=== PATIENT | male | born 1970 | race Caucasian/White ===

== ENCOUNTER 2017-02-22 12:15 | Inpatient (IN) | payer OTHER ==
[2017-02-22] MEDS ORDERED: NON-FORMULARY NEW DRUG (Zolpidem Tartrate [Ambien 10 Mg] 0 MG) PO PRN (16:14)
[2017-02-22] MEDS ORDERED: ACETAMINOPHEN 325 MG TAB PO PRN (16:14)
[2017-02-22] MEDS ORDERED: POLYETHYLENE GLYCOL 3350 17 GM PKT PO PRN (16:15)
[2017-02-22] MEDS ORDERED: BISACODYL 10 MG SUPP PR PRN (16:15)
--- NOTE | 2017-02-22 16:17 | PDOREHIP ---
Admission [facility] - Admission - 3 Day Assessment Period Admission Date/Day 1: 02/22/17 Day 2: 02/23/17 Day 3: 02/24/17 - Active Diagnoses Comorbidities and Co-existing Conditions at Admission: 77950. None of the Above - Skin Conditions Unhealed Pressure Ulcer (1 or more/Stage 1 or >)-Admission: 0. No
[2017-02-22] MEDS ORDERED: ZOLPIDEM TARTRATE 5 MG TAB PO PRN (16:19)
--- NOTE | 2017-02-22 16:54 | GHP ---
[f rep st] HISTORY AND PHYSICAL POST ADMISSION PHYSICIAN EVALUATION AND REHABILITATION TREATMENT PLAN DATE OF ADMISSION: 02/22/2017 DATE OF EVALUATION: February 22, 2017. TIME OF EVALUATION: 1540. REFERRING FACILITY: [facility]. IMPAIRMENT GROUP: 1.2. DATE OF ONSET: 02/18/2017. REFERRING PHYSICIAN: Dr. Almaraz. CONSULTING PHYSICIANS: He was seen in consultation by Neurology, Dr. Cali, and there was a Cardiology consultation with Dr. Joy. REHABILITATION DIAGNOSIS: Cerebrovascular accident involving the right posterior artery with infarction in the right occipital and temporal lobes, and the right thalamus. ETIOLOGIC DIAGNOSIS: Right body involvement (left brain). HISTORY OF PRESENT ILLNESS: The patient presented to the emergency department at [facility] with a headache, vision changes, and left- sided tingling and weakness, this had been going on longer than the window for thrombolysis. A head CT showed ischemic infarct in the right posterior cerebral artery vascular distribution, involving the right occipital lobe, the right medial temporal lobe and the right thalamus. He was seen by Neurology, an MRI of the brain showed the same findings as a head CT. An echocardiogram showed an atrial septal defect on bubble study. Angiography of the brain did not show any source of clot with a carotid ultrasound, and no DVT was found on lower extremity venous Doppler study. EKG showed right heart strain but normal sinus rhythm, a hypercoagulable state. Laboratory workup was obtained, but results are not yet available. He was started on aspirin, clopidogrel, and atorvastatin. His condition was considered stable for transfer to rehabilitation. LABORATORY DATA: Other studies and labs in the hospital, a CBC and a BMP were entirely within normal limits. Lipid profile showed a cholesterol of 180, an HDL of 40, an LDL of 130, and triglycerides of 48. Hemoglobin A1c was normal at 5, magnesium and phosphorus were normal. PRECAUTIONS: He is a fall risk. ACTIVE COMORBIDITIES: He has no active tier 1, tier 2, or tier 3 comorbidities. PAST MEDICAL HISTORY: 1. Hypertension. 2. Hypokalemia due to diuretic. 3. Rotator cuff tear on the left. 4. Depression. PAST SURGICAL HISTORY: He has had repair of the rotator cuff tear approximately 10 years ago. PRE-HOSPITAL MEDICATIONS: 1. Amlodipine 10 mg p.o. daily. 2. Escitalopram 10 mg p.o. daily. 3. Hydrocodone/acetaminophen 5/325 p.r.n. 4. Losartan 100 mg p.o. daily. 5. Hydrochlorothiazide 25 mg p.o. daily. 6. Metoprolol 50 mg extended release daily. 7. Potassium chloride 20 mEq daily. 8. Zolpidem 10 mg tablet, 5 to 10 mg p.o. at bedtime p.r.n. ADMISSION MEDICATIONS: 1. Escitalopram 5 mg p.o. daily. 2. Zolpidem 5 to 10 mg p.o. at bedtime p.r.n. 3. Acetaminophen 650 mg p.o. q.6 hours p.r.n. 4. Aspirin 325 mg p.o. daily. 5. Atorvastatin 40 mg p.o. at bedtime. 6. Clopidogrel 75 mg p.o. at bedtime. ALLERGIES: There are no known drug allergies. FAMILY HISTORY: Prostate cancer in his father, breast cancer in his mother. Stroke in his father at the age of 62. He is not aware of any history of abnormal blood clotting. PSYCHOSOCIAL HISTORY: He is , he lives with his and 3 teenage daughters. 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 There are steps to enter the house and steps within the house that he will need to negotiate. REVIEW OF SYSTEMS: He reports feeling disoriented on the drive from [facility] to [place], even though he is very familiar with the route and has driven it many times. He reports that he needs to concentrate and focus carefully to identify common objects. He feels he has tunnel vision. He has a mild headache. He denies weakness. He has tingling in the left arm and left leg. He denies cough, dyspnea, fevers, chills, weight gain or weight loss, chest pain, palpitations, nausea, vomiting, constipation, diarrhea, dysuria, urinary frequency, joint pain, joint swelling, skin rash, or skin breakdown, and otherwise a 10-point review of systems is negative. PHYSICAL EXAMINATION: VITAL SIGNS: Vitals are not yet available in the chart. GENERAL: This is a well-nourished, well-developed man dressed in street clothes, lying in bed, and then sits up, cooperative and in no acute distress. HEENT: Extraocular movements are intact. Pupils are equal, round, and reactive to light and accommodation. Mucous membranes are moist. Dentition is in good condition. He has an uncrowded airway, Mallampati class 1. NECK: Supple. HEART: Regular rate and rhythm, with no murmurs, rubs, or gallops. He is bradycardic. LUNGS: Clear to auscultation bilaterally. ABDOMEN: Soft, nontender, nondistended with normoactive bowel sounds, and no hepatosplenomegaly. EXTREMITIES: There is no cyanosis, clubbing, or edema. NEUROLOGIC: He is alert and oriented x3. Cranial nerves 2-12 are grossly intact. Left pupil is mildly larger than right pupil. They are approximately 3 mm and 2 mm, but they are normally reactive and otherwise cranial nerves 2-12 are grossly intact. There is 4+/5 weakness to the left hip flexor, otherwise there is no weakness. Sensation is intact to light touch. There is no loss of sensation to double simultaneous stimulation. Deep tendon reflexes are 2+ bilaterally at the biceps, patellar, and Achilles tendons. Finger to nose reveals normal cerebellar function, smooth and no past pointing. There is a left visual field cut on direct confrontation. SKIN: Warm and dry, with no rashes or skin breakdown noted. Current level of function per the pre-admission screen: Regarding diet, feeding , and swallowing, he is on a regular textured cardiac diet with thin liquids. Regarding grooming, he required setup and assistance. For bathing he required assistance, for dressing he required assistance. Bed mobility was achieved with contact guard assist and supervision. Transfers were done with contact guard to standby assist. Balance was noted to be poor. He needed close to standby assist and verbal cues. Endurance was poor. He was able to ambulate 10 feet with minimal to contact guard assist. Regarding cognition, he was noted to have mild cognitive deficits, and that he would need a higher level of cognitive therapy. He needed some cuing, he had decreased safety awareness. He was noted to have left visual problems. IMPRESSION: The patient is a 46-year-old man who suffered a posterior circulation stroke on 02/18/2017, beginning over the day or two prior to the presentation to the hospital. Head CT and MRI showed stroke in the right occipital lobe, right medial temporal lobe, and right thalamus. Investigations as to the etiology of the stroke showed an atrial septal defect on echocardiogram, but no other source of an embolus was noted, including on ultrasound of the carotid arteries and Doppler ultrasound bilaterally of the lower extremities. He was begun on aspirin, clopidogrel, and atorvastatin. His antihypertensives were held to allow permissive hypertension, and they can be restarted on Monday, February 27, 2017. He has functional deficits, partly stemming from his left visual field cut. He has some mild left-sided weakness and he has decreased balance, decreased endurance, and possibly cognitive effects from the stroke. He is appropriate for inpatient rehabilitation, where he will benefit from physical and occupational therapies, regarding activities of daily living, mobility and speech and language pathology regarding higher level cognitive function. Hypercoagulable laboratory workup was done at [facility] and we will watch for the results of these tests , and treat him appropriately with anticoagulant should they be positive. His goal is to return home with his family. For a safe discharge it is expected that he will achieve modified independence with mobility, self-care, activities of daily living and cognition, that he will have improvement in his vision, that he and his family will be educated on medication management. His blood pressure will need to be controlled. There will need to be family training and neurologic education. He will receive therapy with physical therapy, occupational therapy, and speech and language pathology for 60 minutes each day for each discipline on 5 to 7 days of the week. His expected duration of stay is 10-12 days. It is anticipated that upon discharge he will continue to benefit from home health services, including speech and language pathology, occupational therapy, physical therapy, and a stroke support group. ASSESSMENT AND PLAN: 1. 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 Physical and occupational therapy to optimize mobility and activities of daily living. 2. Cognitive effects of the stroke to be assessed and treated by Speech and Language Pathology. 3. Atrial septal defect and unknown embolic source. He was treated with aspirin and clopidogrel, and hypercoagulable labs are in process. Atorvastatin has been added for secondary stroke prevention. 4. Hypertension. His antihypertensives have been held to allow permissive hypertension, and can be restarted starting 02/27/2017. 5. Depression, is being treated with escitalopram. He will be observed for adequacy of treatment. There is no dima hemiplegia, so there is no reason to change to fluoxetine based on data for neuro recovery and hemiplegic stroke. 6. Abnormal EKG in hospital with evidence of right ventricular strain, in the absence of any other symptoms consistent with pulmonary embolus. Cardiology advised that there was no indication for a chest CT, so it was not done. He will be observed for any signs or symptoms of cardiopulmonary compromise. FOLLOWUP: He is to follow up with his primary care provider, Dr. Yung Tavares within the week following his discharge from inpatient rehabilitation. He is to follow up with neurologist, Dr. Bulmaro Cali, in approximately 6 weeks, and with head animal keeper, Dr. Selwyn Shore, in approximately 1 month. /[id number]/MODL MTDD
[2017-02-22] MEDS ORDERED: [UNRECOGNIZED DRUG - OTHER] PO ONE (17:24)
[2017-02-22] MEDS ORDERED: PETROLAT,WHT/MIN OIL/SOD CHL 3.5 GM OPHT.OINT EACHEYE PRN (19:42)
[2017-02-22] MEDS: TEARS/DEXTRAN 70/HYPROMELLOSE 15 ML OPHT.BTL EACHEYE PRN (20:20)
[2017-02-22] MEDS: CLOPIDOGREL BISULFATE 75 MG TAB PO SCH (20:21)
[2017-02-22] MEDS: ATORVASTATIN CALCIUM 40 MG TAB PO SCH (20:21)
[2017-02-23] MEDS: TEARS/DEXTRAN 70/HYPROMELLOSE 15 ML OPHT.BTL EACHEYE PRN ×3 (08:45→16:58)
[2017-02-23] MEDS: ESCITALOPRAM OXALATE 10 MG TAB PO SCH (08:46)
[2017-02-23] MEDS: ASPIRIN EC 325 MG TAB PO SCH (08:46)
[2017-02-23] MEDS ORDERED: NON-FORMULARY NEW DRUG (Escitalopram Oxalate [Lexapro] 5 MG) PO SCH (09:00)
[2017-02-23] MEDS ORDERED: ZOLPIDEM TARTRATE 5 MG TAB PO PRN (09:38)
--- NOTE | 2017-02-23 12:09 | SOAPPROG ---
SOAP Progress Note Assessment/Plan: Assessment: The patient is a 46-year-old man who suffered a posterior circulation stroke on 02/18/2017, beginning over the day or two prior to the presentation to the hospital. Head CT and MRI showed stroke in the right occipital lobe, right medial temporal lobe, and right thalamus. Investigations as to the etiology of the stroke showed an atrial septal defect on echocardiogram, but no other source of an embolus was noted, including on ultrasound of the carotid arteries and Doppler ultrasound bilaterally of the lower extremities. He was begun on aspirin, clopidogrel, and atorvastatin. His antihypertensives were held to allow permissive hypertension, and they can be restarted on Monday, February 27, 2017. He has functional deficits, partly stemming from his left visual field cut. He has some mild left-sided weakness and he has decreased balance, decreased endurance, and possibly cognitive effects from the stroke. 02/23/2017 overall doing well and participating in therapies. Endorses insomnia and previously used Ambien at what he believed was a 5 mg dose. Will schedule for tonight. Starting enoxaparin for dvt prophylaxis. All medical issues are new to this provider. 1. 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 Physical and occupational therapy to optimize mobility and activities of daily living. 2. Cognitive effects of the stroke to be assessed and treated by Speech and Language Pathology. 3. Atrial septal defect and unknown embolic source. He was treated with aspirin and clopidogrel, and hypercoagulable labs are in process. Atorvastatin has been added for secondary stroke prevention. 4. Hypertension. His antihypertensives have been held to allow permissive hypertension, and can be restarted 02/27/2017. 5. Depression, is being treated with escitalopram. He will be observed for adequacy of treatment. There is no dima hemiplegia, so there is no reason to change to fluoxetine based on data for neuro recovery and hemiplegic stroke. 6. Abnormal EKG in hospital with evidence of right ventricular strain, in the absence of any other symptoms consistent with pulmonary embolus. Cardiology advised that there was no indication for a chest CT, so it was not done. He will be observed for any signs or symptoms of cardiopulmonary compromise. 7. Insomnia: home dose of Ambien at 5 mg PO QHS. 8. DVT prophylaxis: SCD and lovenox (starting 02/23/2017) FOLLOWUP: He is to follow up with his primary care provider, Dr. Yung Tavares within the week following his discharge from inpatient rehabilitation. He is to follow up with neurologist, Dr. Bulmaro Cali, in approximately 6 weeks, and with ios developer, Dr. Selwyn Shore, in approximately 1 month. Plan: 02/23/17 12:01 02/23/17 12:09 Subjective: CC: insomnia No acute events overnight. Patients endorse that he had some difficulty sleeping, and has had intermittent difficulty sleeping prior to his stroke. He previously took Ambien at 5 mg PO QHS and is interested in trying that again. I counseled him that that is not the ideal medication in an inpatient setting, but that I would be willing to try it as he has received benefit from it in the past. We will continue to monitor closely. Otherwise he denies any shortness of breath, chest pain, new numbness, tingling, or weakness. Therapy is going well, therapists are endorsing some high-level cognitive impairments. Objective: Vital Signs Temp Pulse Resp BP Pulse Ox 37.0 C 51 L 12 140/99 H 95 02/23/17 08:00 02/23/17 08:00 02/23/17 08:00 02/23/17 08:00 02/23/17 08:00 02/22/17 02/23/17 02/24/17 05:59 05:59 05:59 Intake Total 200 420 Output Total 900 800 Balance -700 -380 Physical Exam - Physical Exam General Appearance: WD/WN, alert, no apparent distress, other (tired appearing) Respiratory: No respiratory distress, No accessory muscle use Cardiac/Chest: regular rate, rhythm, No edema Skin: normal color, warm/dry, No cyanosis Extremities: No pedal edema, No swelling Neuro/Psych: alert, normal mood/affect ICD10 Worksheet Patient Problems: Problems Problem Status Onset CVA (cerebral vascular accident) Acute
[2017-02-23] MEDS: ENOXAPARIN 40 MG/0.4 ML SYR SC SCH (13:12)
[2017-02-23] MEDS: SENNOSIDES 1 TAB PO PRN (17:00)
[2017-02-23] MEDS: CLOPIDOGREL BISULFATE 75 MG TAB PO SCH (20:54)
[2017-02-23] MEDS: ATORVASTATIN CALCIUM 40 MG TAB PO SCH (20:54)
[2017-02-24] MEDS: ENOXAPARIN 40 MG/0.4 ML SYR SC SCH (08:04)
[2017-02-24] MEDS: ESCITALOPRAM OXALATE 10 MG TAB PO SCH (08:17)
[2017-02-24] MEDS: ASPIRIN EC 325 MG TAB PO SCH (08:17)
[2017-02-24] MEDS ORDERED: POLYETHYLENE GLYCOL 3350 17 GM PKT PO PRN (08:40)
[2017-02-24] MEDS ORDERED: POLYETHYLENE GLYCOL 3350 17 GM PKT PO SCH (09:00)
--- NOTE | 2017-02-24 13:22 | SOAPPROG ---
SOAP Progress Note Assessment/Plan: Assessment: The patient is a 46-year-old man who suffered a posterior circulation stroke on 02/18/2017, beginning over the day or two prior to the presentation to the hospital. Head CT and MRI showed stroke in the right occipital lobe, right medial temporal lobe, and right thalamus. He has some mild left-sided weakness and he has decreased balance, decreased endurance, and possibly cognitive effects from the stroke. 02/24/2017 patient doing very well in therapies, discussed at length in therapy meeting today with physical therapy, occupational therapy, speech therapy, nursing, social work. Discussed with the patient has history of depression, currently feels that his mood is low. He was tapering off of Lexapro at the time of his admission, he endorsed difficulty concentration, decreased motivation, and poor sexual performance on that medication. He is open to switching to fluoxetine which we discussed today. He has no history of pawel. No history of suicidal ideation or suicide attempts. Left upper quadrant visual field deficits consistent with findings by therapies, also appears to have a visual processing deficit. He notes that he slept better with the addition of Ambien. A total of 35 minutes was spent on the floor in the care of the patient, the majority of which was spent in counseling and coordination of care regarding insomnia and depression management strategies, as well as functional status and prognosis in the group meeting. 1. 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 Physical and occupational therapy to optimize mobility and activities of daily living. Functional independence measure on 02/24/2017 is 97. 2. Cognitive effects of the stroke to be assessed and treated by Speech and Language Pathology. 3. Atrial septal defect and unknown embolic source. He was treated with aspirin and clopidogrel, and hypercoagulable labs are in process. Atorvastatin has been added for secondary stroke prevention. 4. Hypertension. His antihypertensives have been held to allow permissive hypertension, and can be restarted 02/27/2017. 5. Depression: Did not like side effects of Lexapro, switching to fluoxetine 6. Abnormal EKG in hospital with evidence of right ventricular strain, in the absence of any other symptoms consistent with pulmonary embolus. Cardiology advised that there was no indication for a chest CT, so it was not done. He will be observed for any signs or symptoms of cardiopulmonary compromise. 7. Insomnia: home dose of Ambien at 5 mg PO QHS. 8. DVT prophylaxis: SCD and lovenox (starting 02/23/2017) FOLLOWUP: He is to follow up with his primary care provider, Dr. Yung Tavares within the week following his discharge from inpatient rehabilitation. He is to follow up with neurologist, Dr. Bulmaro Cali, in approximately 6 weeks, and with mock up assembler, Dr. Selwyn Shore, in approximately 1 month. Plan: 02/23/17 12:01 02/23/17 12:09 02/24/17 13:15 02/24/17 13:24 Subjective: CC: depression, insomnia no acute events overnight. Patient slept much better with the addition of Ambien. He notes that his mood is somewhat low, has a history of depression without any suicidal ideation or attempts, no episodes of pawel. He was previously on Lexapro, still on the low dose, but was tapering. He notes that the side effects he experienced included decreased motivation, decreased concentration, and impaired sexual function. He is okay with trying fluoxetine as he does not think he's been out of in the past and is open to the possibility of improving neural recovery with its addition. He continues to complain of visual impairments including the left upper quadrant field cut and difficulty interpreting visual stimuli. Otherwise he denies any shortness of breath or chest pain, no new numbness, tingling, or weakness. Objective: Vital Signs Temp Pulse Resp BP Pulse Ox 36.7 C 51 L 14 160/98 H 90 L 02/24/17 08:00 02/24/17 08:00 02/24/17 08:00 02/24/17 08:00 02/24/17 08:00 02/23/17 02/24/17 02/25/17 05:59 05:59 05:59 Intake Total 200 1140 Output Total 900 2050 Balance -700 -910 Physical Exam - Physical Exam General Appearance: WD/WN, alert, no apparent distress Respiratory: No respiratory distress, No accessory muscle use Cardiac/Chest: regular rate, rhythm, No edema Skin: normal color, warm/dry, No cyanosis Extremities: No pedal edema, No swelling Neuro/Psych: alert, other ( Cranial nerves include a left upper quadrant visual field deficit, endorses difficulty interpreting visual information. Sensation was decreased somewhat on the left arm compared to the right, but no evidence of neglect on double simultaneous stimulation.), No normal mood/affect (flat affect) ICD10 Worksheet Patient Problems: Problems Problem Status Onset CVA (cerebral vascular accident) Acute
[2017-02-24] MEDS: TEARS/DEXTRAN 70/HYPROMELLOSE 15 ML OPHT.BTL EACHEYE PRN (19:31)
[2017-02-24] MEDS: CLOPIDOGREL BISULFATE 75 MG TAB PO SCH (20:13)
[2017-02-24] MEDS: ZOLPIDEM TARTRATE 5 MG TAB PO SCH (20:13)
[2017-02-24] MEDS: ATORVASTATIN CALCIUM 40 MG TAB PO SCH (20:13)
[2017-02-25] MEDS: ASPIRIN EC 325 MG TAB PO SCH (08:28)
[2017-02-25] MEDS: FLUoxetine 20 MG CAP PO SCH (08:28)
[2017-02-25] MEDS: ENOXAPARIN 40 MG/0.4 ML SYR SC SCH (08:29)
--- NOTE | 2017-02-25 11:47 | SOAPPROG ---
SOAP Progress Note Assessment/Plan: Assessment: The patient is a 46-year-old man who suffered a posterior circulation stroke on 02/18/2017, beginning over the day or two prior to the presentation to the hospital. Head CT and MRI showed stroke in the right occipital lobe, right medial temporal lobe, and right thalamus. He has some mild left-sided weakness and he has decreased balance, decreased endurance, and possibly cognitive effects from the stroke. 02/25/2017 slept well, no changes to medications today. Tolerating new antidepressant well. 1. 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 Physical and occupational therapy to optimize mobility and activities of daily living. Functional independence measure on 02/24/2017 is 97. 2. Cognitive effects of the stroke to be assessed and treated by Speech and Language Pathology. 3. Atrial septal defect and unknown embolic source. He was treated with aspirin and clopidogrel, and hypercoagulable labs are in process. Atorvastatin has been added for secondary stroke prevention. 4. Hypertension. His antihypertensives have been held to allow permissive hypertension, and can be restarted 02/27/2017. 5. Depression: Did not like side effects of Lexapro, switching to fluoxetine ( also for neural recovery) 6. Abnormal EKG in hospital with evidence of right ventricular strain, in the absence of any other symptoms consistent with pulmonary embolus. Cardiology advised that there was no indication for a chest CT, so it was not done. He will be observed for any signs or symptoms of cardiopulmonary compromise. 7. Insomnia: home dose of Ambien at 5 mg PO QHS. 8. DVT prophylaxis: SCD and lovenox (starting 02/23/2017) FOLLOWUP: He is to follow up with his primary care provider, Dr. Yung Tavares within the week following his discharge from inpatient rehabilitation. He is to follow up with neurologist, Dr. Bulmaro Cali, in approximately 6 weeks, and with energy project engineer, Dr. Selwyn Shore, in approximately 1 month. Plan: 02/23/17 12:01 02/23/17 12:09 02/24/17 13:15 02/24/17 13:24 02/25/17 11:44 Subjective: CC: insomnia, mood No acute events overnight. Patient endorses good sleep, much better mood today. He knows this is the first night of good sleep he's had and he is using his CPAP machine as well. No new shortness of breath, chest pain, numbness, tingling , or weakness. Participating well in therapies, goal to discharge on Monday. Objective: Vital Signs Temp Pulse Resp BP Pulse Ox 37.1 C 56 L 16 125/90 H 95 02/25/17 07:57 02/25/17 07:57 02/25/17 07:57 02/25/17 07:57 02/25/17 07:57 02/24/17 02/25/17 02/26/17 05:59 05:59 05:59 Intake Total 1140 1050 780 Output Total 2049 Balance -910 1050 780 Physical Exam - Physical Exam General Appearance: WD/WN, alert, no apparent distress Respiratory: normal breath sounds, No respiratory distress, No accessory muscle use Cardiac/Chest: regular rate, rhythm, No edema Skin: normal color, warm/dry, No cyanosis Extremities: No pedal edema, No swelling Neuro/Psych: alert, normal mood/affect ICD10 Worksheet Patient Problems: Problems Problem Status Onset CVA (cerebral vascular accident) Acute
[2017-02-25] MEDS: CLOPIDOGREL BISULFATE 75 MG TAB PO SCH (21:36)
[2017-02-25] MEDS: ATORVASTATIN CALCIUM 40 MG TAB PO SCH (21:36)
[2017-02-25] MEDS: ZOLPIDEM TARTRATE 5 MG TAB PO SCH (21:37)
[2017-02-26] MEDS: SENNOSIDES 1 TAB PO PRN (08:28)
[2017-02-26] MEDS: ASPIRIN EC 325 MG TAB PO SCH (08:28)
[2017-02-26] MEDS: FLUoxetine 20 MG CAP PO SCH (08:28)
[2017-02-26] MEDS: ENOXAPARIN 40 MG/0.4 ML SYR SC SCH (08:28)
--- NOTE | 2017-02-26 11:26 | SOAPPROG ---
SOAP Progress Note Assessment/Plan: Assessment: The patient is a 46-year-old man who suffered a posterior circulation stroke on 02/18/2017, beginning over the day or two prior to the presentation to the hospital. Head CT and MRI showed stroke in the right occipital lobe, right medial temporal lobe, and right thalamus. He has some mild left-sided weakness and he has decreased balance, decreased endurance, and possibly cognitive effects from the stroke. 02/26/2017 slept well again tonight, looking forward to discharge tomorrow. Patient did not have any cervical lymphadenopathy, was not able to appreciate the lumpy was concerned about. Patient was not able to find it either. will examine again if he notes its presence. A total of 30 minutes was spent on the care of the patient on the floor today, the majority of which is spent in the counseling and coordination of care regarding discharge planning 1. 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 Physical and occupational therapy to optimize mobility and activities of daily living. Functional independence measure on 02/24/2017 is 97. 2. Cognitive effects of the stroke to be assessed and treated by Speech and Language Pathology. 3. Atrial septal defect and unknown embolic source. He was treated with aspirin and clopidogrel, and hypercoagulable labs are in process. Atorvastatin has been added for secondary stroke prevention. 4. Hypertension. His antihypertensives have been held to allow permissive hypertension, and will be restarted 02/27/2017. 5. Depression: Did not like side effects of Lexapro, switching to fluoxetine ( also for neural recovery) 6. Abnormal EKG in hospital with evidence of right ventricular strain, in the absence of any other symptoms consistent with pulmonary embolus. Cardiology advised that there was no indication for a chest CT, so it was not done. He will be observed for any signs or symptoms of cardiopulmonary compromise. 7. Insomnia: home dose of Ambien at 5 mg PO QHS. 8. DVT prophylaxis: SCD and lovenox (starting 02/23/2017) FOLLOWUP: He is to follow up with his primary care provider, Dr. Yung Tavares within the week following his discharge from inpatient rehabilitation. He is to follow up with neurologist, Dr. Bulmaro Cali, in approximately 6 weeks, and with delivery lead, Dr. Selwyn Shore, in approximately 1 month. Plan: 02/23/17 12:01 02/23/17 12:09 02/24/17 13:15 02/24/17 13:24 02/25/17 11:44 02/26/17 11:23 02/26/17 11:25 Subjective: CC: bump on chin No acute events overnight. Patient notes that he has a lump on the under side of his chin. He was unable to find it this morning however. No new shortness of breath, chest pain, numbness, tingling, or weakness. Looking forward to going home. Objective: Vital Signs Temp Pulse Resp BP Pulse Ox 36.8 C 50 L 18 121/83 H 91 L 02/26/17 07:42 02/26/17 07:42 02/26/17 07:42 02/26/17 07:42 02/26/17 07:42 02/25/17 02/26/17 02/27/17 05:59 05:59 05:59 Intake Total 1050 2140 780 Balance 1050 2140 780 Physical Exam - Physical Exam General Appearance: WD/WN, alert, no apparent distress EENT: normal ENT inspection, other ( no cervical lymphadenopathy, no nodules underneath his chin.) Neck: No lymphadenopathy (R), No lymphadenopathy (L), No tender lateral, No tender midline Respiratory: No respiratory distress, No accessory muscle use Cardiac/Chest: regular rate, rhythm, No edema Skin: normal color, warm/dry, No cyanosis Lymphatic: no adenopathy Extremities: No pedal edema, No swelling Neuro/Psych: alert, normal mood/affect, other ( Decreased sensation on left arm) ICD10 Worksheet Patient Problems: Problems Problem Status Onset CVA (cerebral vascular accident) Acute
--- NOTE | 2017-02-26 11:39 | PDOREHIP ---
Admission [facility] - Admission - 3 Day Assessment Period Admission Date/Day 1: 02/22/17 Day 2: 02/23/17 Day 3: 02/24/17 Discharge [facility] - Discharge - 3 Day Assessment Period 2 Days Prior to Anticipated Discharge Date: 02/25/17 1 Day Prior to Anticipated Discharge Date: 02/26/17 Anticipated Discharge Date: 02/27/17 - Discharge Skin Conditions Unhealed Pressure Ulcer (1 or more/Stage 1 or >)-Discharge: 0. No
[2017-02-26 18:46] VITALS: RESP 16
[2017-02-26] MEDS: ATORVASTATIN CALCIUM 40 MG TAB PO SCH (20:51)
[2017-02-26] MEDS: ZOLPIDEM TARTRATE 5 MG TAB PO SCH (20:51)
[2017-02-26] MEDS: CLOPIDOGREL BISULFATE 75 MG TAB PO SCH (20:51)
[2017-02-27 08:00] VITALS: BP 119/89; PULSE 63; TEMP 98.2; O2SAT 93
[2017-02-27] MEDS: ASPIRIN EC 325 MG TAB PO SCH (08:33)
[2017-02-27] MEDS: ENOXAPARIN 40 MG/0.4 ML SYR SC SCH (08:33)
[2017-02-27] MEDS: FLUoxetine 20 MG CAP PO SCH (08:34)
--- NOTE | 2017-02-27 22:34 | GDS ---
[f rep st] DISCHARGE SUMMARY ADMITTING DIAGNOSIS: Posterior circulation cerebrovascular accident. DISCHARGE DIAGNOSIS: Posterior circulation cerebrovascular accident. OTHER DIAGNOSES: 1. Hypertension. 2. Depression. 3. Abnormal EKG. CONSULTATIONS: There were none. PROCEDURES: There were none. COMPLICATIONS: There were none. HISTORY AND HOSPITAL COURSE: The patient initially presented to [facility] on 02/18/2017 with a headache, vision changes, and left- sided tingling and weakness. Symptoms had been too prolonged for him to be a candidate for thrombolyses. He had further evaluation with a head CT which showed ischemic infarction in the right posterior cerebral artery vascular distribution involving the right occipital lobe, the right medial temporal lobe and the right thalamus. MRI of the brain showed the same findings. Echocardiogram showed an atrial septal defect on bubble study. He had brain angiography which did not show any other source of clot as well as a carotid ultrasound and no DVT was found on lower extremity venous Doppler study. His EKG showed a right heart strain but otherwise normal sinus rhythm. He had evaluation for hypercoagulable state but results are not available at the time of this dictation. He was placed on aspirin, clopidogrel and atorvastatin. He had been on multiple antihypertensives prior to his hospitalization, and these were held to allow permissive hypertension. He did very well in rehabilitation. His initial functional independence measure on 02/24/2017 was 97. This is consistent with a high level of assisted living level of function, borderline independent. He continued to have improvement but he had a persistent left visual field cut and reduced balance and endurance. He was also noted to have cognitive fatigue. He had occasional elevated blood pressures as high as the 140s over 100, and on the day of discharge, he is restarted on losartan 50 mg daily. He had previously been on losartan 100 mg daily as well as hydrochlorothiazide 25 mg p.o. daily, amlodipine 10 mg daily and metoprolol 50 mg extended release daily. When he was admitted, he was on escitalopram at 10 mg daily for history of depression. This was changed to fluoxetine 20 mg daily for neurorecovery, and he tolerated this medication change. LABORATORIES AND STUDIES: During his stay, there were no labs or studies done. PHYSICAL EXAMINATION ON THE DAY OF DISCHARGE: VITAL SIGNS: Blood pressure was 119/89; the previous evening it had been 149/100. Heart rate was 63, respiratory rate was 16. Oxygen saturation was 93% on room air. Temperature was 36.8 degrees centigrade. GENERAL: This is a well-nourished, well- developed man, sitting up in bed, cooperative, in no acute distress. HEART: Regular rate and rhythm with no murmurs, rubs, or gallops. LUNGS: Clear to auscultation bilaterally. ABDOMEN: Soft, nontender, nondistended with normoactive bowel sounds. EXTREMITIES: There is no cyanosis, clubbing, or edema. NEUROLOGIC: He is alert and oriented x3. Gait is overall within normal limits. CONDITION UPON DISCHARGE: Good. DISCHARGE PLAN: Activity: Ad johnathon but no driving due to visual deficits. Diet is regular. Next appointment: He has followups planned with his primary care provider Yung Tavares, in 1 week, neurologist Bulmaro Cali, in 1 to 2 weeks, receptionist scheduler Selwyn Shore in 1 to 2 weeks, and sales and training specialist Randal Sibley in 2 weeks. MEDICATIONS AT DISCHARGE: 1. Clopidogrel 75 mg p.o. at bedtime. 2. Fluoxetine 20 mg p.o. daily. 3. Losartan 50 mg p.o. daily. 4. Aspirin 325 mg p.o. daily. 5. Acetaminophen 650 mg p.o. q.6 hours p.r.n. 6. Atorvastatin 40 mg p.o. at bedtime. 7. Zolpidem 5 to 10 mg p.o. at bedtime p.r.n. ISSUES TO BE ADDRESSED AT FOLLOWUP: 1. 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 He will see Dr. Sibley and will continue to work with outpatient physical therapy and occupational therapy. 2. History of hypertension. Resumption of blood pressure medications was initiated on the day of discharge with losartan 50 mg p.o. daily. He can follow up with his primary care provider regarding further adjustment. 3. Atrial septal defect. He will continue dual antiplatelet therapy and follow up with Cardiology regarding any further management. Copy requested to: Dr. Selwyn Shore /[id number]/MODL MTDD
== END 2017-02-27 15:19 | disposition home or self-care (01) | DRG 57 ==
LOC: BREH 15:24
PROVIDERS: ADMIT Internal Medicine; ATTEND Internal Medicine
PROC: F07M3ZZ Motor Function Treatment of Musculoskeletal System - Whole Body (ICD-10-PCS; principal; 2017-02-22)
PROC: F0636ZZ Communicative/Cognitive Integration Skills Treatment of Neurological System - Whole Body (ICD-10-PCS; principal; 2017-02-22)
PROC: F08Z7ZZ Vocational Activities and Functional Community or Work Reintegration Skills Treatment (ICD-10-PCS; principal; 2017-02-22)
DX: I69.319 Unspecified symptoms and signs involving cognitive functions following cerebral infarction (principal); I69.354 Hemiplegia and hemiparesis following cerebral infarction affecting left non-dominant side; Q21.1 Atrial septal defect; R94.31 Abnormal electrocardiogram [ECG] [EKG]; I10 Essential (primary) hypertension; E87.5 Hyperkalemia; F32.9 Major depressive disorder, single episode, unspecified; G47.00 Insomnia, unspecified
CPT/HCPCS: 92507-GN; 92522-GN; 97110-GO; 97110-GP; 97112-GP; 97116-GP; 97161-GP; 97165-GO; 97530-GO; 97530-GP; 97532-GO; 97535-GO; J1650